=== PATIENT | female | born 1995 | race Caucasian/White ===

== ENCOUNTER 2017-10-15 00:31 | Emergency (ER) | payer BC ==
[~2017-10-15] VITALS: Ht 165.1 cm; Wt 73.3 kg
[~2017-10-15 00:31] MED LIST: ADVIN25/60 INH; ALBUAER2 INH; BCPILLS PO; CETI10TA84 PO; ESCI10TA17 PO; FLUT0.15; PRED20TA PO; XPNINS125 INH; [UNRECOGNIZED DRUG - REMARK]
[2017-10-15 00:47] VITALS: TEMP 36.7; Ht 165.1 cm; Wt 73.3 kg
[2017-10-15] MEDS ORDERED: CEFTRIAXONE SOD INJ 1 GM ADDVIAL IV STA (00:59)
[2017-10-15] MEDS ORDERED: PHENAZOPYRIDINE HCL 200 MG TAB PO STA (00:59)
[2017-10-15] MEDS ORDERED: PHENAZOPYRIDINE HOME PACK 200 MG VIAL PO ONE ×2 (01:00→03:03)
[2017-10-15 01:22] LABS: MANUAL MICROSCOPIC REQUIRED? YES; REVIEW REQ? NO; URINE APPEARANCE CLEAR (CLEAR); URINE COLOR ORANGE
[2017-10-15 01:23] LABS: SULFASALICYLIC ACID NEG (NEG)
[2017-10-15 01:27] LABS: URINE SPECIFIC GRAVITY 1.025 (1.000-1.030)
[2017-10-15 01:30] LABS: BASO % 0.4 %; BASO ABS # 0.04 K/uL (0-0.2); COMPLETE YES; EOS % 1.5 %; HEMATOCRIT 37.6 % (37-47); IG% 0.2 %; LYMPH % 20.9 %; MEAN CELL VOLUME 90.6 fL (80-100); MEAN CORPUSCULAR HEMOGLOBIN 31.8 pg (25-34); MEAN CORPUSCULAR HGB CONC 35.1 g/dl (32-36); MONO % 7.7 %; NEUT % 69.3 %; PLATELET COUNT 208 K/uL (130-400); RED BLOOD COUNT 4.15 M/uL (4.2-5.4); WHITE BLOOD COUNT 9.07 K/uL (4.8-10.8)
[2017-10-15 01:31] LABS: URINE BACTERIA 1+ (NEG); URINE RBC >30 /hpf (0-4); URINE WBC >30 /hpf (0-5)
[2017-10-15 01:32] LABS: ZZUR CULT IF INDIC CLEAN CATCH YES
[2017-10-15 02:03] LABS: BUN/CREATININE RATIO 20.3 (10-20); CALCIUM 8.4 mg/dl (8.5-10.1); CREATININE 0.91 mg/dl (0.60-1.20); POTASSIUM 3.5 mmol/L (3.5-5.1)
[2017-10-15] MEDS ORDERED: ALBUT/IPRATROP 3MG/0.5MG NEB 3 ML VIAL INH STA (02:08)
[2017-10-15] MEDS ORDERED: SULF800T23 PO (04:20)
[2017-10-15] MEDS ORDERED: PHEN-876 PO (04:20)
[2017-10-15 04:27] VITALS: BP 117/63; PULSE 90; O2SAT 95
--- NOTE | 2017-10-15 04:28 | EMERGENCY ROOM VISIT NOTE ---
History First contact with patient: 00:58 Chief Complaint: URINARY SYMPTOMS Stated Complaint: LOWER BACK PAIN,ABD PAIN BURN WHILE PEEING,BLOOD I Nursing Triage Summary: Pt complains of right back pain for 3 days. Today pt with urinary burning and freq. Pt took uristat with no relief.+ diarrhea History of Present Illness The patient is a 21 year old female who presents to the Emergency Room with complaints of right flank pain with urinary symptoms for the past 3 days and cough who has asthma. No recent antibiotics. Patient states she had urinary symptoms and then today developed flank pain. Mild, 3 out of 10. Nothing makes it better or worse. It does not radiate. Patient denies chest pain, dyspnea, fever, chills, nausea, vomiting, diarrhea, productive cough. Patient has asthma and allergies and has not been taking her Zyrtec. Review of Systems See HPI for pertinent positives & negatives. A total of 10 systems reviewed and were otherwise negative. Past Medical/Surgical History Medical Problems: (1) Asthma Family History Asthma Social History Smoking Status: Never Smoker Drug Use: none Housing Status: lives with roommate Occupation Status: [employer] student Current/Historical Medications Scheduled Control Pills ( Control Pills), 1 TAB PO DAILY Escitalopram (Lexapro), 10 MG PO QAM Fluticasone Prop/Salmeterol (Advair Diskus 250/50 60 Dose), 1 PUFF INH BID Fluticasone Propionate (Nasal) (Flonase Allergy Relief), 1 SPRAY NA DAILY Levalbuterol (Levalbuterol HCl), 1.25 MG INH Q4RWA Phenazopyridine HCl (Pyridium), 200 MG PO TID Prednisone (Prednisone), 20 MG PO DAILY Sulfa/Trimethoprim (Bactrim Ds 800MG/160MG), 1 TAB PO BID Scheduled PRN Albuterol (Ventolin), 2 PUFFS INH QID PRN for SOB/Wheezing Cetirizine (Zyrtec), 10 MG PO DAILY PRN for ALLERGIC REACTION Miscellaneous Medications [Unknown Nebu Med], Unknown Dose Physical Exam Vital Signs Date Time Temp Pulse Resp B/P (MAP) Pulse Ox O2 Delivery O2 Flow Rate FiO2 10/15/17 03:49 84 16 131/52 95 Room Air 10/15/17 01:31 89 16 111/59 98 Room Air 10/15/17 00:47 36.7 92 18 118/62 96 Room Air Physical Exam VITALS: Vitals are noted on the nurse's note and reviewed by myself. Vital signs stable. GENERAL: Pleasant female, in no acute distress, nondiaphoretic, well-developed well-nourished. SKIN: The skin was without rashes, erythema, edema, or bruising. There is no tenting of the skin. Capillary reflex less than 2 seconds. HEAD: Normocephalic atraumatic. EARS: External auditory canals clear, tympanic membranes pearly mccoy without erythema or effusion bilaterally. EYES: Pupils equal round and reactive to light and accommodation. Conjunctivae without injection, sclerae without icterus. Extraocular movements intact. NOSE: Patent, turbinates without inflammation or discharge. MOUTH: Mucous membranes moist. Pharynx without erythema or exudate. Uvula midline. Airway patent. Tongue does not deviate. NECK: Supple without nuchal rigidity. No lymphadenopathy. No thyromegaly. Cervical spine is nontender. No JVD. HEART: Regular rate and rhythm without murmurs gallops or rubs. LUNGS: Clear to auscultation bilaterally without wheezes, rales or rhonchi. No dullness to percussion. No retractions or accessory muscle use. ABDOMEN: Positive bowel sounds x 4. Normal tympanic percussion. Soft, nontender, without masses or organomegaly. Campos sign negative. No guarding or rebound tenderness. Right CVA tenderness MUSCULOSKELETAL: No muscle atrophy, erythema, or edema noted. NEURO: Patient was alert and oriented to person place and time. Normal sensation to light and sharp touch. No focal neurological deficits. Medical Decision & Procedures Laboratory Results 10/15/17 01:15 Red Blood Count 4.15, Mean Corpuscular Volume 90.6, Mean Corpuscular Hemoglobin 31.8, Mean Corpuscular Hemoglobin Concent 35.1, Mean Platelet Volume 9.0, Neutrophils (%) (Auto) 69.3, Lymphocytes (%) (Auto) 20.9, Monocytes (%) (Auto) 7.7, Eosinophils (%) (Auto) 1.5, Basophils (%) (Auto) 0.4, Neutrophils # (Auto) 6.27, Lymphocytes # (Auto) 1.90, Monocytes # (Auto) 0.70, Eosinophils # (Auto) 0.14, Basophils # (Auto) 0.04 10/15/17 01:15 Test 10/15/17 00:55 10/15/17 01:15 Urine Color ORANGE Urine Appearance CLEAR (CLEAR) Urine pH (4.5-7.5) Urine Specific [place] 1.025 (1.000-1.030) Urine Protein NEG (NEG) Urine Glucose (UA) (NEG) Urine Ketones (NEG) Urine Occult Blood (NEG) Urine Nitrite (NEG) Urine Bilirubin (NEG) Urine Urobilinogen (NEG) Urine Leukocyte Esterase (NEG) Urine RBC >30 /hpf (0-4) Urine WBC >30 /hpf (0-5) Urine Epithelial Cells 0-5 /lpf (0-5) Urine Bacteria 1+ (NEG) Urine Test NEG (NEG) White Blood Count 9.07 K/uL (4.8-10.8) Red Blood Count 4.15 M/uL (4.2-5.4) Hemoglobin 13.2 g/dL (12.0-16.0) Hematocrit 37.6 % (37-47) Mean Corpuscular Volume 90.6 fL (80-100) Mean Corpuscular Hemoglobin 31.8 pg (25-34) Mean Corpuscular Hemoglobin Concent 35.1 g/dl (32-36) Platelet Count 208 K/uL (130-400) Mean Platelet Volume 9.0 fL (7.4-10.4) Neutrophils (%) (Auto) 69.3 % Lymphocytes (%) (Auto) 20.9 % Monocytes (%) (Auto) 7.7 % Eosinophils (%) (Auto) 1.5 % Basophils (%) (Auto) 0.4 % Neutrophils # (Auto) 6.27 K/uL (1.4-6.5) Lymphocytes # (Auto) 1.90 K/uL (1.2-3.4) Monocytes # (Auto) 0.70 K/uL (0.11-0.59) Eosinophils # (Auto) 0.14 K/uL (0-0.5) Basophils # (Auto) 0.04 K/uL (0-0.2) RDW Standard Deviation 39.5 fL (36.4-46.3) RDW Coefficient of Variation 12.0 % (11.5-14.5) Immature Granulocyte % (Auto) 0.2 % Immature Granulocyte # (Auto) 0.02 K/uL (0.00-0.02) Anion Gap 6.0 mmol/L (3-11) Est Creatinine Clear Calc Drug Dose 98.9 ml/min Estimated GFR () 105.3 Estimated GFR (Non- 90.8 BUN/Creatinine Ratio 20.3 (10-20) Calcium Level 8.4 mg/dl (8.5-10.1) Medications Administered Medications (Trade) Dose Ordered Sig/Storm Route Start Time Stop Time Status Last Admin Dose Admin Ceftriaxone Sodium (Rocephin Inj) 1 gm NOW STAT IV 10/15/17 00:59 10/15/17 01:01 DC 10/15/17 01:22 1 GM Phenazopyridine HCl (Pyridium Tab) 200 mg NOW STAT PO 10/15/17 00:59 10/15/17 01:01 DC 10/15/17 01:21 200 MG Albuterol/ Ipratropium (Duoneb) 3 ml NOW STAT INH 10/15/17 02:08 10/15/17 02:09 DC 10/15/17 02:11 3 ML ED Course Prior records/ancillary studies reviewed. Triage Nursing notes reviewed. The patient's history was concerning for urinary symptoms with flank pain and cough. Differential diagnosis: Etiologies such as appendicitis, diverticulitis, asthma exacerbation, pneumonia , UTI, pancreatitis, obstruction, mesenteric ischemia, aortic pathology, infections, inflammatory bowel disease, renal colic, as well as others were entertained. Physical examination findings: As above. ER treatment provided: Rocephin, nebulizer On reassessment the patient felt better. Diagnostics interpreted by me: The labs revealed urine concerning for infection and sent for culture No leukocytosis. Negative hCG Imaging studies: Ultrasound was read by stat radiology with no hydronephrosis. Chest x-ray with no acute consolidation, pneumothorax or free air per my interpretation Exam and history seem consistent with pyelonephritis. Patient had right CVA tenderness. Urine was infected. She was not vomiting. She is afebrile. She was felt to be a good candidate to be discharged home on oral antibiotics. Patient was coughing and felt much better after the nebulizer. No pneumonia on x-ray. Patient was not retracting. She was not hypoxic. Patient is advised to take medications as directed and drink plenty fluids to flush her bladder. She is advised to follow-up health services in a few days or here in the ER sooner for fevers, vomiting, pain, coughing, worsening signs or symptoms or as needed. By the evaluation outlined above emergent etiologies such as appendicitis, diverticulitis, PUD, biliary pathology, pancreatitis, obstruction , mesenteric ischemia, aortic pathology, inflammatory bowel disease, renal colic, as well as others were deemed relatively unlikely. The pt informed about the findings as listed above. All questions were answered and pleased with the treatment. Return instructions were outlined and the patient was discharged in stable condition. Outpatient prescription management: Bactrim, Pyridium Referral: The patient was referred back to their primary care physician/[facility] for follow-up in 2 to 3 days for a recheck of the current condition. Case reviewed by attending Medical Decision As above Medication Reconcilliation Current Medication List: was personally reviewed by me Blood Pressure Screening Patient's blood pressure: Normal blood pressure Impression Primary Impression: Pyelonephritis Additional Impression: Asthma Departure Information Dispostion Home / Self-Care Condition GOOD Prescriptions Phenazopyridine HCl (Pyridium) 200 Mg Tab 200 MG PO TID for 2 Days, #6 TAB Prov: Mercedez Lopez PA-C 10/15/17 Sulfa/Trimethoprim (Bactrim Ds 800MG/160MG) Tab 1 TAB PO BID for 7 Days, #14 TAB Prov: Mercedez Lopez PA-C 10/15/17 Forms HOME CARE DOCUMENTATION FORM, School Instructions, Return To School: 2 days IMPORTANT VISIT INFORMATION Patient Instructions Pyelonephritis - [facility], [facility] Additional Instructions Use your inhaler every 4 hours for coughing. Trimethoprim-Sulfamethoxazole(Bactrim DS): Take one pill twice daily for 7 days for your urine infection. All antibiotics can cause diarrhea. If this occurs and you feel worse or it does not resolve in 1-2 days follow up with your doctor or return to the Emergency Department as this could be signs of serious underlying problems. Any medication can cause an allergic reaction, stop the pills immediately and return to the ER for rash, hives, breathing difficulties, or swelling. Pyridium 200mg: Take one pill three times daily as needed for urinary discomfort. This medication will turn your urine orange. This is normal and nothing to be concerned about. Ibuprofen(Motrin, Advil) may be used for fever or pain. Use 600mg every six hours as needed. Take with food. Avoid using more than 2400mg in a 24 hour period. Do not use 2400mg per day for more than three consecutive days without physician direction. Prolonged inappropriate use can lead to stomach upset or ulcers. (AND/OR) Acetaminophen(Tylenol) may be used for fever or pain. Use 1000mg every six hours as needed. Avoid using more than 3000mg in a 24 hour period. Rest and drink plenty of fluids as tolerated. Slow sips of water or sports drinks are recommended instead of large amounts all at once. Continue current medications. Once your stomach is settled start with a clear liquid diet (jello, soup broth, etc.) and then advance as tolerated. You should avoid full, heavy meals for about 24 hrs from the time your symptoms resolved. Return to the ER immediately for worsening or persistent abdominal/back pain, vomiting, fevers, worsening of your condition, or as needed. Follow up with your primary physician/health services within 2-3 days for a recheck of the current condition. School Instructions Return To School: 2 days Problem Qualifiers
[2017-10-15] MEDS ORDERED: SEPTRA DS HOME PACK 1 EA VIAL PO ONE (04:30)
--- NOTE | 2017-10-15 06:35 | DIAGNOSTIC IMAGING REPORT ---
CHEST 2 VIEWS ROUTINE CLINICAL HISTORY: cough COMPARISON STUDY: 07/28/2016 FINDINGS: The cardiac and mediastinal contours are normal. There is no evidence of focal pulmonary consolidation. There is no evidence of failure. No pleural effusions are visualized.[ IMPRESSION: No active disease in the chest. Electronically signed by: Bo Campuzano M.D. 10/15/2017 6:33 AM Dictated Date/Time: 10/15/2017 6:33 AM
--- NOTE | 2017-10-15 06:37 | DIAGNOSTIC IMAGING REPORT ---
(RENAL)RETROPERITON COMP HISTORY: Flank pain right flank pain COMPARISON: None. FINDINGS: Right kidney: Maximum dimension 11.8 cm. No evidence for hydronephrosis. Normal corticomedullary differentiation and cortical thickness. Left kidney: Maximum dimension 11.4 cm. No evidence for hydronephrosis. Normal corticomedullary differentiation and cortical thickness. Bladder: No bladder wall thickening. The bilateral ureteral jets were identified. IMPRESSION: Normal renal ultrasound. note is made of mild splenomegaly at 12 cm. The above report was generated using voice recognition software. It may contain grammatical, syntax or spelling errors. Electronically signed by: Farshad Fortune M.D. 10/15/2017 6:36 AM Dictated Date/Time: 10/15/2017 6:35 AM
== END 2017-10-15 04:30 | disposition home or self-care (01) ==
LOC: C.EDB 00:33
DX: N12 Tubulo-interstitial nephritis, not specified as acute or chronic (principal); J45.909 Unspecified asthma, uncomplicated; Z82.5 Family history of asthma and other chronic lower respiratory diseases

== ENCOUNTER 2018-02-17 17:54 | Emergency (ER) | payer OTHER, BC ==
[~2018-02-17] VITALS: Ht 165.1 cm; Wt 76.5 kg
[2018-02-17 18:03] VITALS: BP 120/74; TEMP 36.8; Ht 165.1 cm; Wt 76.5 kg
[2018-02-17] MEDS ORDERED: XYLOCAINE 1%/SOD BICARB 20 ML VIAL INFIL ONE (18:15)
[2018-02-17 19:39] VITALS: PULSE 82; O2SAT 98
--- NOTE | 2018-02-17 23:35 | EMERGENCY ROOM VISIT NOTE ---
History First contact with patient: 18:05 Chief Complaint: LACERATION/CUT (SUT/DERMABOND) Stated Complaint: LACERATIONS TO RT HAND, 2ND AND 3RD DIGITS- Nursing Triage Summary: cut finger of right hand 2nd and 3rd fingers small lacerations noted. bleeding is controlled History of Present Illness The patient is a 22 year old female who presents to the Emergency Room with complaints of lacerations to her right index and long finger. 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 The patient denies any significant bleeding, and rates her discomfort a 4 out of 10. She denies any paresthesias or numbness of the fingertips. The patient is right- hand dominant. Review of Systems 6 system review was performed and was negative except for pertinent positives and negatives as indicated in history of present illness Past Medical/Surgical History Medical Problems: (1) Asthma Family History Asthma Social History Smoking Status: Never Smoker Drug Use: none Marital Status: single Housing Status: lives with roommate Occupation Status: [employer] student Current/Historical Medications Scheduled Control Pills ( Control Pills), 1 TAB PO DAILY Escitalopram (Lexapro), 10 MG PO QAM Fluticasone Prop/Salmeterol (Advair Diskus 250/50 60 Dose), 1 PUFF INH BID Fluticasone Propionate (Nasal) (Flonase Allergy Relief), 1 SPRAY NA DAILY Levalbuterol (Levalbuterol HCl), 1.25 MG INH Q4RWA Prednisone (Prednisone), 20 MG PO DAILY Scheduled PRN Albuterol (Ventolin), 2 PUFFS INH QID PRN for SOB/Wheezing Cetirizine (Zyrtec), 10 MG PO DAILY PRN for ALLERGIC REACTION Miscellaneous Medications [Unknown Nebu Med], Unknown Dose Physical Exam Vital Signs Date Time Temp Pulse Resp B/P (MAP) Pulse Ox O2 Delivery O2 Flow Rate FiO2 02/17/18 19:39 82 20 98 02/17/18 18:03 36.8 69 18 120/74 97 Room Air Physical Exam CONSTITUTIONAL: Healthy and well nourished. Alert and oriented X 3 with positive affect. HEENT: Normocephalic, atraumatic. Pupils equal, round and reactive. MUSCULOSKELETAL: Examination shows linear lacerations of the tips of the right index and long finger. There actually 2 lacerations on the long finger, and one on the index finger. Total repairable laceration length was 3 cm with each laceration measuring 1 cm. No active bleeding or nail plate involvement. Capillary refill is less than 2 seconds INTEGUMENTARY: No rash or other significant dermatologic conditions noted. NEUROLOGIC: Left hand and fingers are sensory intact. Medical Decision & Procedures Procedure Laceration repair was performed by our physician property assistant student under my direct supervision, and after receiving verbal consent from the patient.. Using buffered 1% lidocaine without epinephrine, digital block anesthesia was administered of both the index and long finger. The fingers were then painted with iodine and allowed to drive. Sterile field was created. The wounds were irrigated with normal saline prior to closure using 5-0 nylon simple interrupted sutures. Bacitracin dressings were applied. ED Course Patient history and physical exam were performed. Nurse's notes were reviewed. Vital signs were reviewed and were normal. Laceration repair was performed under digital block anesthesia. The patient was provided additional verbal and written wound care instructions. Ice and elevation for swelling. Ibuprofen or Tylenol as needed for pain. Suture removal in 12-14 days, or seek reevaluation sooner for any signs of wound infection. The patient was happy with plan of care, voiced understanding of all discharge instructions, and denied any pain at the time of discharge. Medical Decision Medication Reconcilliation Current Medication List: was personally reviewed by me Blood Pressure Screening Patient's blood pressure: Normal blood pressure Impression Primary Impression: Laceration of right index finger Additional Impressions: Work related injury Laceration of right middle finger Departure Information Dispostion Home / Self-Care Condition GOOD Forms HOME CARE DOCUMENTATION FORM, IMPORTANT VISIT INFORMATION Patient Instructions [facility] Additional Instructions Keep wound clean and dry. Do not allow any crusting or dried blood to accumulate on sutures. If this occurs, use a 1:1 solution of hydrogen peroxide/ water on a Q-tip to clean the wound. Use an antibiotic ointment for 3-4 days, then let wound dry. Suture removal in 12-14 days. Return sooner for any signs of infection (increasing redness, swelling, drainage). Ice and elevate for swelling and pain. Ibuprofen 800 mg and/or Tylenol 1000 mg every 8 hours. You may also alternate these medications for more effective pain relief: Ibuprofen --4 HRS--> Tylenol --4 HRS--> ibuprofen --4 HRS--> Tylenol .... FOR WORK: Must keep fingertip is clean, covered and dry until sutures are removed in 2 weeks. FOR SCHOOL: Patient may be limited with typing and use of right hand until sutures are removed. Problem Qualifiers Primary Impression: Laceration of right index finger Encounter type: initial encounter Damage to nail status: without damage Foreign body presence: without foreign body Qualified Codes: S61.210A - Laceration without foreign body of right index finger without damage to nail, initial encounter Additional Impressions: Laceration of right middle finger Encounter type: initial encounter Damage to nail status: without damage Foreign body presence: without foreign body Qualified Codes: S61.212A - Laceration without foreign body of right middle finger without damage to nail, initial encounter
== END 2018-02-17 19:41 | disposition home or self-care (01) ==
LOC: C.EDB 17:55 → C.EDD 19:41
DX: S61.210A Laceration without foreign body of right index finger without damage to nail, initial encounter (principal); S61.212A Laceration without foreign body of right middle finger without damage to nail, initial encounter; W26.2XXA Contact with edge of stiff paper, initial encounter; Y99.0 Civilian activity done for income or pay; J45.909 Unspecified asthma, uncomplicated; Z79.3 Long term (current) use of hormonal contraceptives; Z79.899 Other long term (current) drug therapy; Z79.52 Long term (current) use of systemic steroids; Z82.5 Family history of asthma and other chronic lower respiratory diseases

== ENCOUNTER 2018-03-03 17:16 | Emergency (ER) | payer OTHER, BC ==
[~2018-03-03] VITALS: Ht 165.1 cm; Wt 75.8 kg
[2018-03-03 17:26] VITALS: BP 124/73; PULSE 79; TEMP 36.8; O2SAT 98; Ht 165.1 cm; Wt 75.8 kg
--- NOTE | 2018-03-03 17:36 | EMERGENCY ROOM VISIT NOTE ---
ED Visit Note First contact with patient: 17:30 CHIEF COMPLAINT: Suture removal HPI: This patient returns to the ED today for removal of sutures that were placed 14 days ago. There has been no swelling, redness, or drainage from the wound. The patient feels like the laceration is healing well. REVIEW OF SYSTEMS: A complete 6 point review of systems was reviewed with the patient with pertinent positives and negatives as per history of present illness. All else were negative. PMH: Asthma MEDS: Advair ALLERGIES: None SOCIAL HISTORY: Patient lives locally with roommates. She is a [employer] student. She denies drug, alcohol, tobacco use. PHYSICAL EXAM: Vital Signs: Reviewed Nurse's notes. There are sutured wounds on the right index and middle fingers with no signs of infection. There is no erythema, swelling, or tenderness. EMERGENCY DEPARTMENT COURSE: The 5 total sutures were removed without any difficulty and there was no separation of the wound edges. I attest that I have personally reviewed the patient's current medication list. Patient was found to have normal blood pressure on screening and does not require follow-up. Differential diagnosis includes laceration, cellulitis, abscess, dehiscence, and others DIAGNOSIS: Laceration of the index and middle fingers, suture removal The chart was completed utilizing [employer] Speech voice recognition software. Grammatical errors, random word insertions, pronoun errors, and incomplete sentences are an occasional consequence of this system due to software limitations, ambient noise, and hardware issues. Any formal questions or concerns about the content, text, or information contained within the body of this dictation should be directly addressed to the provider for clarification. Problem List Medical Problems: (1) Asthma Status: Chronic Current/Historical Medications Scheduled Control Pills ( Control Pills), 1 TAB PO DAILY Escitalopram (Lexapro), 10 MG PO QAM Fluticasone Prop/Salmeterol (Advair Diskus 250/50 60 Dose), 1 PUFF INH BID Fluticasone Propionate (Nasal) (Flonase Allergy Relief), 1 SPRAY NA DAILY Levalbuterol (Levalbuterol HCl), 1.25 MG INH Q4RWA Prednisone (Prednisone), 20 MG PO DAILY Scheduled PRN Albuterol (Ventolin), 2 PUFFS INH QID PRN for SOB/Wheezing Cetirizine (Zyrtec), 10 MG PO DAILY PRN for ALLERGIC REACTION Miscellaneous Medications [Unknown Nebu Med], Unknown Dose Allergies Coded Allergies: No Known Allergies (Unverified , 07/28/16) Vital Signs Date Time Temp Pulse Resp B/P (MAP) Pulse Ox O2 Delivery O2 Flow Rate FiO2 03/03/18 17:26 36.8 79 18 124/73 98 Room Air Departure Information Impression Primary Impression: Encounter for removal of sutures Additional Impressions: Laceration of right index finger Laceration of right middle finger Dispostion Home / Self-Care Condition GOOD Referrals No Doctor, Assigned (PCP) Patient Instructions ED Wound Check Sutr Remove No Infec, [facility] Additional Instructions You were seen in the emergency department today for suture removal. The wounds seem to have healed nicely. Proper wound care is essential for adequate wound healing and infection prevention. You can shower and clean the wound with soap and water. Do not scour over the wound, pat dry with a towel. Do not submerse the wound (i.e. bathe or dish wash) until the wound has fully healed. You can use an antibiotic ointment with a dressing over the wound for the next 3-4 days. After this time you may leave the wound dry and open to the air. Ibuprofen(Motrin, Advil) may be used for fever or pain. Use 600mg every six hours as needed. Take with food. Avoid using more than 2400mg in a 24 hour period. Do not use 2400mg per day for more than three consecutive days without physician direction. Prolonged inappropriate use can lead to stomach upset or ulcers. (AND/OR) Acetaminophen(Tylenol) may be used for fever or pain. Use 1000mg every six hours as needed. Avoid using more than 3000mg in a 24 hour period. Follow-up here or your PCP as needed for concerning symptoms. Problem Qualifiers Additional Impressions: Laceration of right index finger Encounter type: subsequent encounter Damage to nail status: without damage Foreign body presence: without foreign body Qualified Codes: S61.210D - Laceration without foreign body of right index finger without damage to nail, subsequent encounter Laceration of right middle finger Encounter type: subsequent encounter Damage to nail status: without damage Foreign body presence: without foreign body Qualified Codes: S61.212D - Laceration without foreign body of right middle finger without damage to nail, subsequent encounter
== END 2018-03-03 17:39 | disposition home or self-care (01) ==
LOC: C.EDB 17:17 → C.EDD 17:39
DX: Z48.02 Encounter for removal of sutures (principal); S61.212D Laceration without foreign body of right middle finger without damage to nail, subsequent encounter; S61.210D Laceration without foreign body of right index finger without damage to nail, subsequent encounter; X58.XXXD Exposure to other specified factors, subsequent encounter; J45.909 Unspecified asthma, uncomplicated; Z79.899 Other long term (current) drug therapy; Z79.3 Long term (current) use of hormonal contraceptives